=== PATIENT | female | born 1945 | race African-American/Black ===

== ENCOUNTER 2018-05-18 16:41 | Emergency (ER) | payer MEDICARE ==
[~2018-05-18] VITALS: Ht 162.6 cm; Wt 73.0 kg
[2018-05-18 21:46] VITALS: BP 130/72
== END 2018-05-18 21:46 | disposition home or self-care (01) ==
LOC: ER 16:41
DX: R07.89 Other chest pain (principal); M25.561 Pain in right knee; J45.909 Unspecified asthma, uncomplicated; E11.9 Type 2 diabetes mellitus without complications; M17.11 Unilateral primary osteoarthritis, right knee; E78.00 Pure hypercholesterolemia, unspecified; Z88.0 Allergy status to penicillin; V43.52XA Car driver injured in collision with other type car in traffic accident, initial encounter; Y93.89 Activity, other specified; Y92.410 Unspecified street and highway as the place of occurrence of the external cause
CPT/HCPCS: 71046; 73562; 93005; 99283